=== PATIENT | female | born 1935 | race Caucasian/White ===

== ENCOUNTER 2023-03-08 05:55 | Observation (INO) ==
[2023-03-08] MEDS ORDERED: 0.9 % SODIUM CHLORIDE 1,000 ML IV ONE (06:06)
[2023-03-08] MEDS ORDERED: ONDANSETRON 4 MG/2 ML VIAL IV PRN ×2 (06:06→11:21)
[2023-03-08 06:46] LABS: POC Calcium, Ionized 1.18 (1.16-1.32); POC Creatinine 0.8 (0.6-1.2); POC Potassium 3.4 (3.3-5.1)
[2023-03-08 07:43] LABS: Basophils # (Auto) 0.03 K/mcL (0.00-0.30); Basophils % (Auto) 0.5 % (0.0-2.0); Eosinophils # (Auto) 0.02 K/mcL (0.00-0.70); Eosinophils % (Auto) 0.3 % (0.0-7.0); Hematocrit 39.4 % (34.1-44.9); Lymphocytes # (Auto) 0.75 K/mcL (1.50-4.80); Lymphocytes % (Auto) 12.4 % (15.5-49.0); Mean Cell Volume 88.9 fL (80.0-100.0); Mean Platelet Volume 10.1 fL (8.8-12.5); Monocytes # (Auto) 0.45 K/mcL (0.10-0.90); Monocytes % (Auto) 7.5 % (1.0-12.0); Neutrophils % (Auto) 79.1 % (38.0-78.0); Platelet Count 224 K/mcL (140-440); RBC 4.43 M/mcL (3.59-5.38); Red Cell Distribution Width 13.4 % (11.5-14.5)
[2023-03-08 09:12] LABS: ALT/SGPT 7 U/L (<40); AST/SGOT 14 U/L (<32); Albumin 3.9 gm/dL (3.2-5.2); Alkaline Phosphatase 73 U/L (39-117); Bilirubin,Direct < 0.2 mg/dL (0-0.3); Bilirubin,Total 0.7 mg/dL (0.1-1.0); Globulin 3.5 gm/dL (2.2-3.7)
[2023-03-08] MEDS ORDERED: cefTRIAXone 1 GM VIAL IV ONE (09:19)
[2023-03-08] MEDS ORDERED: traZODone HCL 50 MG TABLET PO PRN (11:21)
[2023-03-08] MEDS ORDERED: IPRATROPIUM/ALBUTEROL 3 ML AMPUL.NEB NEB PRN (11:21)
[2023-03-08] MEDS ORDERED: guaiFENesin/DEXTROMETHORPHAN 5ML UD CUP PO PRN (11:21)
[2023-03-08] MEDS ORDERED: ACETAMINOPHEN 325 MG TABLET PO PRN (11:21)
[2023-03-08] MEDS: 0.9 % SODIUM CHLORIDE 1,000 ML IV SCH ×2 (12:08→22:02)
[2023-03-08] MEDS: 0.9 % SODIUM CHLORIDE 10 ML SYRINGE IV SCH ×2 (14:06→20:44)
[2023-03-08] MEDS: NIRMATRELVIR/RITONAVIR 1 EACH BOX PO SCH ×2 (14:27→20:39)
[2023-03-08] MEDS: SENNOSIDES 1 TABLET PO SCH (20:37)
[2023-03-08] MEDS: DOCUSATE SODIUM 100 MG CAPSULE PO SCH (20:37)
[2023-03-09] MEDS: 0.9 % SODIUM CHLORIDE 10 ML SYRINGE IV SCH ×3 (04:16→20:06)
[2023-03-09 06:29] LABS: Basophils # (Auto) 0.02 K/mcL (0.00-0.30); Basophils % (Auto) 0.5 % (0.0-2.0); Eosinophils # (Auto) 0.08 K/mcL (0.00-0.70); Eosinophils % (Auto) 2.2 % (0.0-7.0); Hematocrit 35.5 % (34.1-44.9); Hemoglobin 11.2 g/dL (11.2-15.7); Lymphocytes # (Auto) 0.69 K/mcL (1.50-4.80); Mean Cell Volume 92.9 fL (80.0-100.0); Mean Corpuscular HGB Conc 31.5 g/dL (31.0-36.0); Mean Platelet Volume 9.9 fL (8.8-12.5); Monocytes # (Auto) 0.51 K/mcL (0.10-0.90); Platelet Count 171 K/mcL (140-440); RBC 3.82 M/mcL (3.59-5.38); Red Cell Distribution Width 13.8 % (11.5-14.5); WBC 3.6 K/mcL (4.5-11.0)
[2023-03-09 06:43] LABS: ALT/SGPT 6 U/L (<40); AST/SGOT 17 U/L (<32); Albumin 3.4 gm/dL (3.2-5.2); Albumin/Globulin Ratio 1.2 (1.0-2.3); Alkaline Phosphatase 63 U/L (39-117); Bilirubin,Total 0.7 mg/dL (0.1-1.0); Blood Urea Nitrogen 15 mg/dL (8-23); Calcium 8.7 mg/dL (8.6-10.4); Carbon Dioxide 25 mmol/L (22-30); Chloride 104 mmol/L (96-108); Globulin 2.9 gm/dL (2.2-3.7); Glomerular Filtration Rate 58; Glucose 104 mg/dL (70-105)
[2023-03-09] MEDS: ENOXAPARIN 40 MG/0.4 ML SYRINGE SQ SCH (08:08)
[2023-03-09] MEDS: DOCUSATE SODIUM 100 MG CAPSULE PO SCH ×2 (08:09→20:05)
[2023-03-09] MEDS: METOPROLOL SUCCINATE 50 MG TAB.XL.24H PO SCH (08:09)
[2023-03-09] MEDS: ASPIRIN 81 MG TAB.CHEW PO SCH (08:09)
[2023-03-09] MEDS: PANTOPRAZOLE 40 MG TABLET PO SCH (08:09)
[2023-03-09] MEDS: VITAMIN D3 25 MCG TABLET PO SCH (08:11)
[2023-03-09] MEDS: VENLAFAXINE 75 MG CAP.XL.24H PO SCH (08:11)
[2023-03-09] MEDS: NIRMATRELVIR/RITONAVIR 1 EACH BOX PO SCH ×2 (08:12→20:06)
[2023-03-09 09:22] LABS: Appearance,Urine CLEAR (Clear); Bilirubin,Urine Negative (Negative); Color,Urine YELLOW; Culture Indicated,Urine Yes; Glucose,Urine (UA) Negative (Negative); Ketones,Urine Negative (Negative); Leukocyte Esterase,Urine 25 /uL (Negative); Mucus,Urine FEW /hpf; Nitrate,Urine Negative (Negative); Protein,Urine Negative (Negative); Specific Gravity,Urine 1.011 (1.000-1.035); Urine RBC 5 /hpf (0-3); Urine Squamous Epithelial Cell 1 /hpf (0-4); Urine WBC 41 /hpf (0-4); Urobilinogen,Urine Negative
[2023-03-09] MEDS: AMITRIPTYLINE 10 MG TABLET PO SCH (10:33)
[2023-03-09] MEDS: cefTRIAXone 1 GM VIAL IV SCH (12:46)
[2023-03-09] MEDS: SENNOSIDES 1 TABLET PO SCH (20:05)
[2023-03-10] MEDS: 0.9 % SODIUM CHLORIDE 10 ML SYRINGE IV SCH ×2 (04:12→14:44)
[2023-03-10 06:10] LABS: Basophils # (Auto) 0.02 K/mcL (0.00-0.30); Basophils % (Auto) 0.7 % (0.0-2.0); Eosinophils # (Auto) 0.22 K/mcL (0.00-0.70); Eosinophils % (Auto) 7.5 % (0.0-7.0); Hematocrit 33.8 % (34.1-44.9); Hemoglobin 10.6 g/dL (11.2-15.7); Lymphocytes % (Auto) 30.7 % (15.5-49.0); Mean Cell Volume 92.3 fL (80.0-100.0); Mean Corpuscular HGB Conc 31.4 g/dL (31.0-36.0); Mean Platelet Volume 10.3 fL (8.8-12.5); Monocytes % (Auto) 13.7 % (1.0-12.0); Neutrophils % (Auto) 47.1 % (38.0-78.0); Platelet Count 192 K/mcL (140-440); RBC 3.66 M/mcL (3.59-5.38); Red Cell Distribution Width 13.7 % (11.5-14.5); WBC 2.9 K/mcL (4.5-11.0)
[2023-03-10 06:51] LABS: ALT/SGPT 16 U/L (<40); AST/SGOT 23 U/L (<32); Albumin 3.2 gm/dL (3.2-5.2); Albumin/Globulin Ratio 1.1 (1.0-2.3); Alkaline Phosphatase 66 U/L (39-117); Bilirubin,Total 0.4 mg/dL (0.1-1.0); Blood Urea Nitrogen 22 mg/dL (8-23); Calcium 8.6 mg/dL (8.6-10.4); Carbon Dioxide 21 mmol/L (22-30); Chloride 102 mmol/L (96-108); Glomerular Filtration Rate 66; Glucose 91 mg/dL (70-105)
[2023-03-10] MEDS: METOPROLOL SUCCINATE 50 MG TAB.XL.24H PO SCH (10:23)
[2023-03-10] MEDS: AMITRIPTYLINE 10 MG TABLET PO SCH (10:23)
[2023-03-10] MEDS: PANTOPRAZOLE 40 MG TABLET PO SCH (10:24)
[2023-03-10] MEDS: VITAMIN D3 25 MCG TABLET PO SCH (10:24)
[2023-03-10] MEDS: VENLAFAXINE 75 MG CAP.XL.24H PO SCH (10:24)
[2023-03-10] MEDS: ASPIRIN 81 MG TAB.CHEW PO SCH (10:24)
[2023-03-10] MEDS: DOCUSATE SODIUM 100 MG CAPSULE PO SCH (10:26)
[2023-03-10] MEDS: NIRMATRELVIR/RITONAVIR 1 EACH BOX PO SCH (10:28)
[2023-03-10] MEDS: cefTRIAXone 1 GM VIAL IV SCH (10:30)
[2023-03-10] MEDS: ENOXAPARIN 40 MG/0.4 ML SYRINGE SQ SCH (10:32)
== END 2023-03-10 14:55 ==
LOC: ICU 05:55 → ED 05:55 → ICU 10:52
PROVIDERS: ADMIT Internal Medicine; ATTEND Internal Medicine

== ENCOUNTER 2024-02-29 11:15 | Observation (INO) ==
[2024-02-29] MEDS ORDERED: IOPAMIDOL 100 ML BOTTLE IV ONE ×2 (11:16)
[2024-02-29 12:28] LABS: Basophils # (Auto) 0.02 K/mcL (0.00-0.30); Basophils % (Auto) 0.6 % (0.0-2.0); Eosinophils # (Auto) 0.17 K/mcL (0.00-0.70); Eosinophils % (Auto) 5.4 % (0.0-7.0); Hematocrit 37.6 % (34.1-44.9); Lymphocytes # (Auto) 1.07 K/mcL (1.50-4.80); Lymphocytes % (Auto) 33.8 % (15.5-49.0); Mean Cell Volume 92.6 fL (80.0-100.0); Mean Corpuscular HGB Conc 31.9 g/dL (31.0-36.0); Mean Platelet Volume 10.1 fL (8.8-12.5); Monocytes % (Auto) 9.5 % (1.0-12.0); Neutrophils % (Auto) 50.4 % (38.0-78.0); Platelet Count 203 K/mcL (140-440); RBC 4.06 M/mcL (3.59-5.38); Red Cell Distribution Width 14.4 % (11.5-14.5); WBC 3.2 K/mcL (4.5-11.0)
[2024-02-29] MEDS: ASPIRIN 81 MG TAB.CHEW CHEWED ONE (12:41)
[2024-02-29 12:46] LABS: ALT/SGPT 9 U/L (<40); AST/SGOT 21 U/L (<32); Albumin 3.9 gm/dL (3.2-5.2); Albumin/Globulin Ratio 1.5 (1.0-2.3); Alkaline Phosphatase 63 U/L (39-117); Bilirubin,Total 0.8 mg/dL (0.1-1.0); Blood Urea Nitrogen 9 mg/dL (8-23); Calcium 9.2 mg/dL (8.6-10.4); Carbon Dioxide 24 mmol/L (22-30); Chloride 100 mmol/L (96-108); Globulin 2.6 gm/dL (2.2-3.7); Glomerular Filtration Rate 78; Glucose 98 mg/dL (70-105); Potassium 3.2 mmol/L (3.3-5.1); Sodium 136 mmol/L (133-145)
[2024-02-29 13:06] LABS: Partial Thromboplastin Time 27.1 sec (20.0-37.0)
[2024-02-29 13:13] LABS: Appearance,Urine Clear (Clear); Bacteria,Urine 0 /hpf (0); Bilirubin,Urine Negative (Negative); Color,Urine Light yellow; Glucose,Urine (UA) Negative (Negative); Ketones,Urine Negative (Negative); Leukocyte Esterase,Urine Negative /uL (Negative); Mucus,Urine Few /hpf; Nitrate,Urine Negative (Negative); Protein,Urine Negative (Negative); Specific Gravity,Urine 1.015 (1.000-1.035); Urine Blood Trace-intact ery/mcL (Negative); Urine RBC < 1 /hpf (0-3); Urine Squamous Epithelial Cell < 1 /hpf (0-4); Urine WBC < 1 /hpf (0-4); Urobilinogen,Urine Normal
[2024-02-29] MEDS: POTASSIUM CHLORIDE 20 MEQ TABLET PO ONE (13:55)
[2024-02-29] MEDS: cefTRIAXone 1 GM VIAL IV ONE (14:44)
[2024-02-29] MEDS: DOXYCYCLINE 100 MG in DEXTROSE 5% IN WATER 100 ML IV ONE (14:47)
[2024-02-29 16:55] LABS: Estimated Average Glucose(eAG) 117 mg/dL; Hemoglobin A1C 5.7 % Hgb (4.0-6.0)
[2024-02-29 17:00] LABS: Free T4 (Free Thyroxine) 1.32 ng/dL (0.93-1.70); HDL Cholesterol 49 mg/dL (>40); LDL Cholesterol,Calculated 65 mg/dL (<100); Non-HDL Cholesterol 86 mg/dL (<130); Triglycerides 106 mg/dL (<150)
[2024-02-29] MEDS ORDERED: ONDANSETRON 4 MG/2 ML VIAL IV PRN (17:11)
[2024-02-29] MEDS ORDERED: ACETAMINOPHEN 325 MG TABLET PO PRN (17:11)
[2024-02-29 17:29] LABS: Thyroid Stimulating Hormone 1.41 uIU/mL (0.27-5.01)
[2024-02-29 19:51] LABS: Potassium 3.6 mmol/L (3.3-5.1)
[2024-02-29] MEDS: SENNOSIDES 1 TABLET PO SCH (21:40)
[2024-02-29] MEDS: DOCUSATE SODIUM 100 MG CAPSULE PO SCH (21:40)
[2024-02-29] MEDS: 0.9 % SODIUM CHLORIDE 10 ML SYRINGE IV SCH (21:41)
[2024-03-01 07:09] LABS: Basophils # (Auto) 0.03 K/mcL (0.00-0.30); Basophils % (Auto) 0.9 % (0.0-2.0); Eosinophils % (Auto) 6.1 % (0.0-7.0); Hematocrit 35.3 % (34.1-44.9); Hemoglobin 11.1 g/dL (11.2-15.7); Lymphocytes # (Auto) 1.22 K/mcL (1.50-4.80); Lymphocytes % (Auto) 37.3 % (15.5-49.0); Mean Cell Volume 93.9 fL (80.0-100.0); Mean Corpuscular HGB Conc 31.4 g/dL (31.0-36.0); Mean Platelet Volume 10.6 fL (8.8-12.5); Monocytes # (Auto) 0.31 K/mcL (0.10-0.90); Monocytes % (Auto) 9.5 % (1.0-12.0); Neutrophils % (Auto) 46.2 % (38.0-78.0); Platelet Count 187 K/mcL (140-440); RBC 3.76 M/mcL (3.59-5.38); Red Cell Distribution Width 14.5 % (11.5-14.5); WBC 3.3 K/mcL (4.5-11.0)
[2024-03-01 07:52] LABS: Blood Urea Nitrogen 11 mg/dL (8-23); Carbon Dioxide 23 mmol/L (22-30); Chloride 107 mmol/L (96-108); Glomerular Filtration Rate 82; Glucose 101 mg/dL (70-105); Potassium 3.9 mmol/L (3.3-5.1); Sodium 141 mmol/L (133-145)
[2024-03-01] MEDS: ASPIRIN 81 MG TAB.CHEW CHEWED SCH (08:44)
[2024-03-02 06:45] LABS: Basophils # (Auto) 0.03 K/mcL (0.00-0.30); Eosinophils # (Auto) 0.21 K/mcL (0.00-0.70); Eosinophils % (Auto) 7.3 % (0.0-7.0); Hematocrit 37.9 % (34.1-44.9); Hemoglobin 12.1 g/dL (11.2-15.7); Lymphocytes % (Auto) 41.5 % (15.5-49.0); Mean Cell Volume 93.1 fL (80.0-100.0); Mean Corpuscular HGB Conc 31.9 g/dL (31.0-36.0); Mean Platelet Volume 10.4 fL (8.8-12.5); Monocytes # (Auto) 0.28 K/mcL (0.10-0.90); Monocytes % (Auto) 9.7 % (1.0-12.0); Neutrophils % (Auto) 40.5 % (38.0-78.0); Platelet Count 199 K/mcL (140-440); RBC 4.07 M/mcL (3.59-5.38); Red Cell Distribution Width 14.3 % (11.5-14.5); WBC 2.9 K/mcL (4.5-11.0)
[2024-03-02 07:23] LABS: Blood Urea Nitrogen 10 mg/dL (8-23); Calcium 9.3 mg/dL (8.6-10.4); Carbon Dioxide 24 mmol/L (22-30); Chloride 106 mmol/L (96-108); Glomerular Filtration Rate 78; Glucose 101 mg/dL (70-105); Potassium 4.3 mmol/L (3.3-5.1); Sodium 142 mmol/L (133-145)
== END 2024-03-02 15:05 | disposition home or self-care (01) ==
LOC: MEDSUR 11:15 → ED 11:15 → MEDSUR 17:12
PROVIDERS: ADMIT Student in an Organized Health Care Education/Training Program; ATTEND Student in an Organized Health Care Education/Training Program

== ENCOUNTER 2025-04-09 12:52 | Observation (INO) ==
[2025-04-09] MEDS ORDERED: IOPAMIDOL 100 ML BOTTLE IV ONE (12:53)
[2025-04-09] MEDS: 0.9 % SODIUM CHLORIDE 1,000 ML IV ONE (13:52)
[2025-04-09 14:01] LABS: ALT/SGPT 10 U/L (<40); AST/SGOT 18 U/L (<32); Albumin 4.2 gm/dL (3.2-5.2); Albumin/Globulin Ratio 1.4 (1.0-2.3); Alkaline Phosphatase 71 U/L (39-117); Anion Gap 11.0 (8.0-16.0); Bilirubin,Total 0.9 mg/dL (0.1-1.0); Blood Urea Nitrogen 22 mg/dL (8-23); Calcium 9.7 mg/dL (8.6-10.4); Carbon Dioxide 24 mmol/L (22-30); Chloride 104 mmol/L (96-108); Globulin 2.9 gm/dL (2.2-3.7); Glucose 98 mg/dL (70-105); Potassium 4.0 mmol/L (3.3-5.1); Sodium 139 mmol/L (133-145)
[2025-04-09 14:05] LABS: Basophils # (Auto) 0.02 K/mcL (0.00-0.30); Basophils % (Auto) 0.4 % (0.0-2.0); Eosinophils # (Auto) 0.06 K/mcL (0.00-0.70); Eosinophils % (Auto) 1.2 % (0.0-7.0); Hematocrit 40.4 % (34.1-44.9); Hemoglobin 13.1 g/dL (11.2-15.7); Lymphocytes # (Auto) 0.64 K/mcL (1.50-4.80); Lymphocytes % (Auto) 13.0 % (15.5-49.0); Mean Corpuscular HGB Conc 32.4 g/dL (31.0-36.0); Monocytes # (Auto) 0.30 K/mcL (0.10-0.90); Monocytes % (Auto) 6.1 % (1.0-12.0); Neutrophils % (Auto) 78.9 % (38.0-78.0); Platelet Count 238 K/mcL (140-440); RBC 4.41 M/mcL (3.59-5.38); WBC 4.9 K/mcL (4.5-11.0)
[2025-04-09 18:57] LABS: Bacteria,Urine Many /hpf (0); Bilirubin,Urine NEGATIVE (Negative); Color,Urine LT. YELLOW; Glucose,Urine (UA) NEGATIVE (Negative); Ketones,Urine NEGATIVE (Negative); Leukocyte Esterase,Urine TRACE /uL (Negative); PH,Urine 7.0 (5.0-9.0); Protein,Urine NEGATIVE (Negative); Specific Gravity,Urine 1.010 (1.000-1.035); Urobilinogen,Urine 0.2 mg/dL
[2025-04-09] MEDS ORDERED: SENNOSIDES 1 TABLET PO PRN (21:17)
[2025-04-09] MEDS ORDERED: ONDANSETRON 4 MG/2 ML VIAL IV PRN (21:17)
[2025-04-09] MEDS: ACETAMINOPHEN 325 MG TABLET PO PRN (21:33)
[2025-04-09] MEDS: BUTALB/ACETAMINOPHEN/CAFFEINE 1 TABLET PO ONE (22:05)
[2025-04-09] MEDS: HEPARIN 5,000 UNIT/ML VIAL SQ SCH (22:05)
[2025-04-09] MEDS: 0.9 % SODIUM CHLORIDE 10 ML SYRINGE IV SCH (22:08)
[2025-04-10 06:05] LABS: Basophils # (Auto) 0.03 K/mcL (0.00-0.30); Basophils % (Auto) 0.7 % (0.0-2.0); Eosinophils # (Auto) 0.14 K/mcL (0.00-0.70); Eosinophils % (Auto) 3.4 % (0.0-7.0); Hematocrit 38.0 % (34.1-44.9); Hemoglobin 12.3 g/dL (11.2-15.7); Lymphocytes # (Auto) 1.17 K/mcL (1.50-4.80); Lymphocytes % (Auto) 28.7 % (15.5-49.0); Mean Corpuscular HGB Conc 32.4 g/dL (31.0-36.0); Monocytes # (Auto) 0.44 K/mcL (0.10-0.90); Monocytes % (Auto) 10.8 % (1.0-12.0); Neutrophils % (Auto) 56.2 % (38.0-78.0); Platelet Count 227 K/mcL (140-440); RBC 4.08 M/mcL (3.59-5.38); WBC 4.1 K/mcL (4.5-11.0)
[2025-04-10 06:26] LABS: ALT/SGPT 8 U/L (<40); AST/SGOT 16 U/L (<32); Albumin 3.9 gm/dL (3.2-5.2); Albumin/Globulin Ratio 1.6 (1.0-2.3); Alkaline Phosphatase 63 U/L (39-117); Anion Gap 13.0 (8.0-16.0); Bilirubin,Total 0.8 mg/dL (0.1-1.0); Blood Urea Nitrogen 20 mg/dL (8-23); Calcium 9.2 mg/dL (8.6-10.4); Carbon Dioxide 22 mmol/L (22-30); Chloride 107 mmol/L (96-108); Globulin 2.5 gm/dL (2.2-3.7); Glucose 100 mg/dL (70-105); Potassium 3.4 mmol/L (3.3-5.1); Sodium 142 mmol/L (133-145)
[2025-04-10] MEDS: PANTOPRAZOLE 40 MG TABLET PO SCH (07:54)
[2025-04-10] MEDS: AMITRIPTYLINE 10 MG TABLET PO SCH (09:14)
[2025-04-10] MEDS: VENLAFAXINE 37.5 MG TAB.ER.24H PO SCH (09:14)
[2025-04-10] MEDS: ASPIRIN 81 MG TAB.CHEW PO SCH (09:15)
[2025-04-10] MEDS: MELATONIN 3 MG TABLET PO PRN (22:24)
[2025-04-10] MEDS: POTASSIUM CHLORIDE 20 MEQ TABLET PO ONE ×2 (22:25→22:27)
[2025-04-10] MEDS: LACTATED RINGERS 1,000 ML IV SCH (22:31)
[2025-04-11 06:25] LABS: Basophils # (Auto) 0.05 K/mcL (0.00-0.30); Basophils % (Auto) 1.4 % (0.0-2.0); Eosinophils # (Auto) 0.18 K/mcL (0.00-0.70); Eosinophils % (Auto) 5.2 % (0.0-7.0); Hematocrit 34.7 % (34.1-44.9); Hemoglobin 11.2 g/dL (11.2-15.7); Lymphocytes # (Auto) 1.21 K/mcL (1.50-4.80); Lymphocytes % (Auto) 34.8 % (15.5-49.0); Mean Corpuscular HGB Conc 32.3 g/dL (31.0-36.0); Monocytes # (Auto) 0.31 K/mcL (0.10-0.90); Monocytes % (Auto) 8.9 % (1.0-12.0); Neutrophils % (Auto) 49.4 % (38.0-78.0); Platelet Count 208 K/mcL (140-440); RBC 3.71 M/mcL (3.59-5.38); WBC 3.5 K/mcL (4.5-11.0)
[2025-04-11 09:05] LABS: ALT/SGPT 8 U/L (<40); AST/SGOT 17 U/L (<32); Albumin 3.5 gm/dL (3.2-5.2); Albumin/Globulin Ratio 1.5 (1.0-2.3); Alkaline Phosphatase 56 U/L (39-117); Anion Gap 9.0 (8.0-16.0); Bilirubin,Total 0.6 mg/dL (0.1-1.0); Blood Urea Nitrogen 18 mg/dL (8-23); Calcium 9.0 mg/dL (8.6-10.4); Carbon Dioxide 23 mmol/L (22-30); Chloride 108 mmol/L (96-108); Globulin 2.4 gm/dL (2.2-3.7); Glucose 93 mg/dL (70-105); Potassium 4.0 mmol/L (3.3-5.1); Sodium 140 mmol/L (133-145)
[2025-04-11] MEDS: NEUTRA PHOS 1 PACKET PO ONE (10:56)
[2025-04-11] MEDS: POTASSIUM PHOSPHATE 20 MEQ in DEXTROSE 5% IN WATER 250 ML IV ONE (10:56)
[2025-04-11 12:50] VITALS: O2SAT 98
[2025-04-11 13:29] VITALS: TEMP 97.7
== END 2025-04-11 14:15 | disposition home or self-care (01) ==
LOC: ED 12:52 → ICU 12:52
PROVIDERS: ADMIT Student in an Organized Health Care Education/Training Program; ATTEND Student in an Organized Health Care Education/Training Program